=== PATIENT | female | born 2000 | race Caucasian/White ===

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

== ENCOUNTER 2020-03-08 18:11 | Emergency (ER) | payer OTHER ==
--- OUTSIDE RECORDS SUMMARY | 2020-03-08 18:23 | XMS ---
:2000 Author Organization [facility] Support Name Relationship Address Phone SEEMA Unavailable Unavailable Unavailable STEVE SOTO MOTHER [address] [place] [address] Re-disclosure Warning The records that you are about to access may contain information from federally- assisted alcohol or drug abuse programs. If such information is present, then the following federally mandated warning applies: This information has been disclosed to you from records protected by federal confidentiality rules (42 CFR part 2). The federal rules prohibit you from making any further disclosure of this information unless further disclosure is expressly permitted by the written consent of the person to whom it pertains or as otherwise permitted by 42 CFR part 2. A general authorization for the release of medical or other information is NOT sufficient for this purpose. The Federal rules restrict any use of the information to criminally investigate or prosecute any alcohol or drug abuse patient.The records that you are about to access may contain highly sensitive health information, the redisclosure of which is protected by Article 27-F of the [facility] Public Health law. If you continue you may haveaccess to information: Regarding HIV / AIDS; Provided by facilities licensed or operated by the [facility] Office of Mental Health; or Provided by the [facility] Office for People With Developmental Disabilities. If such information is present, then the following [facility] mandated warning applies: This information has been disclosed to you from confidential records which are protected by state law. State law prohibits you from making any further disclosure of this information without the specific written consent of the person to whom it pertains, or as otherwise permitted by law. Any unauthorized further disclosure in violation of state law may result in a fine or [place] [facility] sentence or both. A general authorization for the release of medical or other information is NOT sufficient authorization for further disclosure. 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
--- NOTE | 2020-03-08 18:28 | PDOC ---
History of Present Illness - General Chief Complaint: Pain Stated Complaint: PAIN TO RIGHT UPPER CHEST AFTER MILD EXCERCISE Time Seen by Provider: 03/08/20 18:19 History Source: Patient Exam Limitations: No Limitations - History of Present Illness Initial Comments: 03/08/20 18:23 20y F with no significant PMH presenting to the ER with complaints of sudden onset chest pressure and shortness of breath. Pt states she was standing, and rotating her hips and shoulders when she felt a pressure on the R upper chest and felt like she couldn't breathe. Was in her usual state of health until this episode. She denies trauma, neck pain, back pain, vomiting, abdominal pain, leg swelling, calf pain, dyspnea with exertion, recent surgeries, family history of [place], clotting or bleeding disorders. She does endorse nausea and admits to vaping and smoking marijuana which she was not doing when symptoms occurred. Denies illicit drug use. PT states her friend told her she might be having a panic attack but pt denies any cause of stress or anxiety. PMD: PMH: see hpi PSH: none Meds: OCPs Allergies: amoxicillin Social: vaping, THC use Past History - Medical History Allergies/Adverse Reactions: Allergies Allergy/AdvReac Type Severity Reaction Status Date / Time amoxicillin Allergy Itching Verified 03/08/20 18:19 Home Medications: Ambulatory Orders Norethindrone-E.estradiol-Iron [Microgestin Fe 1.5-30 Tab] 1 each PO DAILY 03/08/20 COPD: No - Psycho-Social/Smoking History Smoking History: Never smoked Have you smoked in the past 12 months: No Review of Systems - Review of Systems Constitutional: No: Symptoms Reported HEENTM: No: Symptoms Reported Respiratory: Yes: See HPI Cardiac (ROS): Yes: See HPI ABD/GI: Yes: Nausea Musculoskeletal: No: Symptoms Reported Integumentary: No: Symptoms Reported Neurological: No: Symptoms reported *Physical Exam - Physical Exam General Appearance: Yes: Nourished, Appropriately Dressed, Mild Distress, Other (anxious) HEENT: positive: EOMI, GENE Neck: positive: Trachea midline, Supple. negative: Lymphadenopathy (R), Lymphadenopathy (L) Respiratory/Chest: positive: Chest Tender (reproducible pain.), Lungs Clear, Normal Breath Sounds. negative: Respiratory Distress, Labored Respiration, Rapid RR, Crackles, Rales, Rhonchi, Stridor, Wheezing Cardiovascular: positive: Regular Rhythm, S1, S2, Tachycardia. negative: Edema, JVD, Murmur Vascular Pulses: Dorsalis-Pedis (R): 2+, Doralis-Pedis (L): 2+ Comments:: 03/08/20 18:27 radial pulses 2+ Gastrointestinal/Abdominal: positive: Normal Bowel Sounds, Soft. negative: Tender Musculoskeletal: negative: CVA Tenderness Extremity: positive: Normal Capillary Refill. negative: Swelling, Calf Tenderness, Erythema Integumentary: positive: Normal Color, Dry, Warm Neurologic: positive: lawyer real estate II-XII NML intact, Fully Oriented, Alert, Normal Mood/Affect, Normal Response, Motor Strength /5 Medical Decision Making - Medical Decision Making 03/08/20 18:26 20y F with no significant pmh presenting to the ER for sob and chest pressure. states that she feels like there is something in the airway. vitals: mildly tachycardic 103 pe: anxious appearing, normal breath sounds, no chest wall tenderness. normal physical exam. no calf swelling or tenderness. no signs or symptoms of dvt. ddx includes but not limited to msk, spontaneous pneumothorax from bleb given vaping history, pe (given ocp use and sudden onset sob), anxiety. less likely acs, covid, dissection, gerd/gastritis. does not feel pain, does not want any medications right now. cannot PERC out due to tachycardia and ocp use. Wells score 1.5 (low risk) for HR >100. low suspicion given clinical presentation and history. -ekg -cxr if pt does not feel better and still tachycardic and tachypneic, might need workup for evaluation of PE. 03/08/20 18:35 ekg: nsr at 85bpm. normal axis, normal intervals. no [place]ton or depressions, no twi. no signs of right heart strain. 03/08/20 18:51 requesting meds: will give motrin. xray performed. will sign out to night team pending cxr read and reassessment. Discharge - Discharge Information Problems reviewed: Yes Clinical Impression/Diagnosis: Shortness of breath, Acute chest wall pain - Follow up/Referral - Patient Discharge Instructions - Post Discharge Activity
[2020-03-08 18:29] VITALS: BP 134/88; TEMP 97.9; BMI 19.5
[2020-03-08] MEDS ORDERED: IBUPROFEN 400 MG TABLET (FP) PO ONE ×2 (18:50→18:52)
[2020-03-08 19:47] VITALS: PULSE 70
--- NOTE | 2020-03-08 19:59 | PDOC ---
*Physical Exam - Vital Signs Last Vital Signs Temp Pulse Resp BP Pulse Ox 97.9 F 70 14 134/88 100 03/08/20 18:18 03/08/20 19:47 03/08/20 19:47 03/08/20 18:18 03/08/20 19:47 ED Treatment Course - Medications Given in the ED: ED Medications Discontinued Medications Generic Name Dose Route Start Last Admin Trade Name Janiya PRN Reason Stop Dose Admin Ibuprofen 400 mg 03/08/20 18:50 03/08/20 18:53 Motrin - PO 03/08/20 18:51 400 mg ONCE ONE Administration ED Progress Note - Progress Note Progress Note: 03/08/20 19:57 This is a 20-year-old female whose care was transferred to me from Dr. Mtz at 1900 hrs. Patient comes in complaining of some pleuritic chest pain after doing some videos that required a lot of arm movements. Patient has some risk factors for pulmonary embolism including oral contraceptives, smoking but no family history. Patient's work-up was unremarkable and patient was given some NSAIDs. On my reevaluation patient symptoms had resolved she was breathing more comfortably and will be discharged home on NSAIDs. Discharge - Discharge Information Problems reviewed: Yes Clinical Impression/Diagnosis: Shortness of breath, Acute chest wall pain Condition: Stable Disposition: HOME - Admission No - Follow up/Referral - Patient Discharge Instructions Additional Instructions: Take Motrin 2 to 3 tablets 3 times a day with food do not take on an empty stomach. Return for worsening symptoms, shortness of breath or concerns. Return to the emergency department immediately with ANY new, persistent or worsening symptoms. Continue any medications as previously prescribed by your physician. You should follow up with your primary doctor as soon as possible regarding to day's emergency department visit. . Please make sure your doctor reviews the results of your emergency evaluation. Thank you for coming to the Emergency Department today for your care. It was a pleasure to see you today. Please note that your evaluation is INCOMPLETE until you follow-up with your doctor. - Post Discharge Activity
--- NOTE | 2020-03-09 18:33 | EKG ---
Test Reason : Blood Pressure : / mmHG Vent. Rate : 087 BPM Atrial Rate : 087 BPM P-R Int : 158 ms QRS Dur : 088 ms QT Int : 366 ms P-R-T Axes : 079 087 056 degrees QTc Int : 440 ms SINUS RHYTHM WITH MARKED SINUS ARRHYTHMIA OTHERWISE NORMAL ECG NO PREVIOUS ECGS AVAILABLE Confirmed by MD HALLE, GENE ([id number]) on 03/09/2020 6:33:37 PM Referred By: MD WU Confirmed By:GENE NERI MD
--- NOTE | 2020-03-11 18:47 | PDOC ---
Attending Attestation - Resident Resident Name: Jodee Ruvalcaba - ED Attending Attestation I have performed the following: I have examined & evaluated the patient, The case was reviewed & discussed with the resident, I agree w/resident's findings & plan, Exceptions are as noted - Medical Decision Making 03/11/20 18:45 WA NAD Reproducible MS right chest pain after twisting / dancing for a video. On control, but very low suspicion for PE Sating 100 percent, ekg 87bpm, no evidence of Right heart strain CXR wnl. Will treat with nsaids. Dr. Alva to reasses and dispo Discharge - Discharge Information Problems reviewed: Yes Clinical Impression/Diagnosis: Shortness of breath, Acute chest wall pain Condition: Stable Disposition: HOME - Follow up/Referral - Patient Discharge Instructions Additional Instructions: Take Motrin 2 to 3 tablets 3 times a day with food do not take on an empty stomach. Return for worsening symptoms, shortness of breath or concerns. Return to the emergency department immediately with ANY new, persistent or worsening symptoms. Continue any medications as previously prescribed by your physician. You should follow up with your primary doctor as soon as possible regarding today's emergency department visit. . Please make sure your doctor reviews the results of your emergency evaluation. Thank you for coming to the Emergency Department today for your care. It was a pleasure to see you today. Please note that your evaluation is INCOMPLETE until you follow-up with your doctor. - Post Discharge Activity
== END 2020-03-08 20:02 | disposition home or self-care (01) ==
LOC: FER 18:11
DX: R06.02 Shortness of breath (principal); R07.89 Other chest pain
CPT/HCPCS: 71045-TC-FY; 93005; 99284-25

== ENCOUNTER 2020-07-24 23:06 | Emergency (ER) | payer OTHER ==
[2020-07-24 23:28] VITALS: BP 122/83; PULSE 98; TEMP 99; BMI 20.3
== END 2020-07-25 | disposition home or self-care (01) ==
LOC: FER 23:06
DX: F41.9 Anxiety disorder, unspecified (principal)
CPT/HCPCS: 99284-25

== ENCOUNTER 2021-04-11 20:04 | Emergency (ER) | payer OTHER ==
[2021-04-11 20:13] VITALS: BP 123/80; PULSE 95; TEMP 99.8; BMI 20.3
[2021-04-11 20:48] LABS: HCG,QUALITATIVE URINE Negative
[2021-04-11 20:49] LABS: HEMOGLOBIN 13.7 GM/dl (10.7-15.3); MCH 33.3 pg (25.7-33.7); MCHC 32.7 g/dl (32.0-36.0); MEAN CELL VOLUME 101.6 fl (80-96); MEAN PLT VOLUME 8.1 fl (7.5-11.1); PLATELET COUNT 383 10^3/uL (134-434); RBC 4.13 M/mm3 (3.60-5.2); RDW 11.4 % (11.6-15.6); WHITE BLOOD COUNT 11.3 K/mm3 (4.0-10.8)
[2021-04-11 21:03] LABS: ALBUMIN 4.1 g/dl (3.4-5.0); BILIRUBIN,TOTAL 1.3 mg/dl (0.2-1); CREATININE 0.9 mg/dl (0.55-1.3); TOT PROT 7.2 g/dl (6.4-8.2)
[2021-04-11] MEDS ORDERED: KETOROLAC TROMETHAMINE 30 MG/1 ML VIAL IVPUSH ONE (21:43)
[2021-04-11] MEDS ORDERED: METOCLOPRAMIDE HCL 10 MG TABLET (FP) PO ONE ×2 (21:44→21:47)
[2021-04-11] MEDS ORDERED: KETOROLAC TROMETHAMINE 30 MG/1 ML VIAL ONE (21:48)
[2021-04-11 23:11] LABS: PLATELET ESTIMATE ADEQUATE
== END 2021-04-11 22:00 | disposition home or self-care (01) ==
LOC: FER 20:04
PROC: 3E0233Z Introduction of Anti-inflammatory into Muscle, Percutaneous Approach (ICD-10-PCS; principal; 2021-04-11)
DX: G43.909 Migraine, unspecified, not intractable, without status migrainosus (principal)
CPT/HCPCS: 36415; 70450-TC; 80053; 81003; 81015; 82550; 82553; 84484; 84703; 85025; 93005; 96372; 99285-25

== ENCOUNTER 2022-05-25 21:40 | Emergency (ER) | payer OTHER ==
[2022-05-25 21:51] VITALS: BP 131/93; PULSE 100; RESP 17; TEMP 98.3; BMI 22.1
[2022-05-25] MEDS ORDERED: DOXYCYCLINE HYCLATE 100 MG CAPSULE PO ONE ×2 (22:49→22:53)
== END 2022-05-25 22:57 | disposition home or self-care (01) ==
LOC: FER 21:40
DX: A69.20 Lyme disease, unspecified (principal)
CPT/HCPCS: 0241U-QW; 99283-25